=== PATIENT | female | born 1965 | race Caucasian/White ===

== ENCOUNTER 2020-02-08 18:08 | Emergency (ER) | payer OTHER ==
[2020-02-08 18:33] VITALS: O2SAT 98
--- NOTE | 2020-02-08 18:33 | ERPHSYRPT ---
- History of Present Illness Time Seen by Provider: 02/08/20 18:25 Source: patient Physician History: Patient is a 54-year-old female presents to our ED with back pain. Patient states she was in her pool when she missed a step and stumbled. She did not fall. No trauma. However patient felt that she pulled a muscle in her low back. Pain described as an ache that is well localized. No radiation. Pain worse with movement and palpation. Pain improved with rest. No fever. No recent back procedures. No saddle anesthesia. No change in bowel bladder function. Symptoms are mild to moderate in intensity. Patient is otherwise healthy. She voices no other complaints at this time. Timing/Duration: today Method of Injury: lost balance Quality: aching Back Pain Location: lumbar spine Severity of Pain-Max: moderate Severity of Pain-Current: mild Modifying Factors: Improves With: movement Associated Symptoms: denies symptoms, No fever, No chills, No sweating, No urinary incontinence, No loss of bowel control, No constipation, No nausea, No vomiting, No problems urinating, No light-headedness, No dizziness, No numbness in legs/feet, No weakness, No sensory/motor loss, No tingling in legs/feet, No lower back pain Previous symptoms: no prior history Allergies/Adverse Reactions: No Known Drug Allergies Allergy (Unverified 02/08/20 18:33) Home Medications: No Reportable Medications [No Reported Medications] 02/08/20 [History] - Review of Systems Constitutional: No Symptoms, No Fever, No Chills Eyes: No Symptoms Ears, Nose, & Throat: No Symptoms Respiratory: No Symptoms, No Cough, No Dyspnea Cardiac: No Symptoms, No Chest Pain, No Edema, No Syncope Abdominal/Gastrointestinal: No Symptoms, No Abdominal Pain, No Nausea, No Vomiting, No Diarrhea Genitourinary Symptoms: No Symptoms, No Dysuria Musculoskeletal: No Symptoms, No Back Pain, No Neck Pain Skin: No Symptoms, No Rash Neurological: No Symptoms, No Dizziness, No Focal Weakness, No Sensory Changes Psychological: No Symptoms Endocrine: No Symptoms Hematologic/Lymphatic: No Symptoms Immunological/Allergic: No Symptoms All Other Systems: Reviewed and Negative - Nursing Vital Signs Nursing Vital Signs: Initial Vital Signs Temperature 98.9 F 02/08/20 18:21 Pulse Rate 96 H 02/08/20 18:21 Respiratory Rate 20 02/08/20 18:21 Blood Pressure 147/83 02/08/20 18:21 O2 Sat by Pulse Oximetry 98 02/08/20 18:21 Pain Scale Pain Intensity [Lower Back] 8 Pain Intensity 9 - Physical Exam General Appearance: no apparent distress, alert Eye Exam: PERRL/EOMI, eyes nml inspection Neck Exam: normal inspection, non-tender, supple, full range of motion, No meningismus, No midline tenderness Respiratory Exam: normal breath sounds, lungs clear, No respiratory distress Cardiovascular Exam: regular rate/rhythm, normal heart sounds Gastrointestinal Exam: soft, No tenderness, No mass Pelvic Exam: not done Rectal Exam: deferred Extremity Exam: normal inspection, normal range of motion, No calf tenderness, No pedal edema Neurologic Exam: alert, oriented x 3, cooperative, project/production manager imaging II-XII nml as tested, normal mood/affect, nml station & gait, sensation nml, No motor deficits Skin Exam: normal color, warm, dry, No rash SpO2 Interpretation: normal SpO2: 98 O2 Delivery: Room Air - Radiology Exams L-Spine X-ray Interpretation: Teleradiologist Report (No fractures or dislocations.) Ordered Tests: Active Orders 24 hr Category Date Time Status LUMBAR LIMITED (2 OR 3 VIEWS) Stat Exams 02/08/20 18:32 Ordered UA W/RFX UR CULTURE Stat Lab 02/08/20 18:38 Completed Medication Summary Discontinued Medications Generic Name Dose Route Start Last Admin Trade Name Ferq PRN Reason Stop Dose Admin Ketorolac Tromethamine 30 mg 02/08/20 18:35 02/08/20 18:40 Toradol 30 Mg Injection IM 02/08/20 18:36 30 mg STAT ONE Administration Ketorolac Tromethamine Confirm 02/08/20 18:38 Toradol 30 Mg Injection Administered 02/08/20 18:39 Dose 30 mg .ROUTE .STK-MED ONE Lab/Rad Data: Laboratory Results 02/08/20 Range/Units 18:38 Urine Color YELLOW (YELLOW) Urine Appearance SLIGHTLY CLOUDY (CLEAR) Urine pH 5.0 (5-6) Ur Specific [place] 1.032 (1.005-1.025) Urine Protein NEGATIVE (Negative) Urine Ketones NEGATIVE (NEGATIVE) Urine Blood NEGATIVE (0-5) Byron/ul Urine Nitrite NEGATIVE (NEGATIVE) Urine Bilirubin NEGATIVE (NEGATIVE) Urine Urobilinogen NEGATIVE (0-1) mg/dL Ur Leukocyte Esterase NEGATIVE (NEGATIVE) Urine WBC (Auto) 0-2 (0-5) /HPF Urine RBC (Auto) NONE (0-2) /HPF U Epithel Cells (Auto) MODERATE (FEW) /HPF Urine Bacteria (Auto) MODERATE (NEGATIVE) /HPF Urine Mucus (Auto) SLIGHT (NEGATIVE) /HPF Urine Culture Reflexed NO (NO) Urine Glucose NEGATIVE (NEGATIVE) mg/dL - Progress Progress: improved Progress Note: 02/08/20 19:10 Patient reassessed. Pain improved. UA negative for UTI. X-ray lumbosacral spine is negative for acute pathology. No fracture or dislocation. Patient voices no other complaints or concerns at this time. Will discharge patient home. She agrees to follow-up with her primary care doctor within 48 hours for reevaluation. Counseled pt/family regarding: diagnosis, need for follow-up, rad results - Departure Departure Disposition: Home Clinical Impression: Lumbosacral strain Condition: Stable Critical Care Time: No Referrals: PEE CORBETT [Primary Care Provider] - Additional Instructions: Discharge/Care Plan MAGEN MEDRANO was seen on 02/08/20 in the Emergency Room. The patient was counseled regarding Diagnosis,Lab results, Imaging studies, need for follow up and when to return to the Emergency Room. Prescriptions given: Discharge Note I have spoken with the patient and/or caregivers. I have explained the patient's condition, diagnosis and treatment plan based on the information available to me at this time. I have answered the patient's and/or caregiver's questions and addressed any concerns. The patient and/or caregivers have as good understanding of the patient's diagnosis, condition and treatment plan as can be expected at this point. The vital signs have been stable. The patient's condition is stable and appropriate for discharge from the emergency department. The patient will pursue further outpatient evaluation with the primary care physician or other designated or consulting physician as outlined in the discharge instructions. The patient and/or caregivers are agreeable to this plan of care and follow-up instructions have been explained in detail. The patient and/or caregivers have received these instruction. The patient/and or caregivers are aware that any significant change in condition or worsening of symptoms should prompt an immediate return to this or the closest emergency department or call 911.
[2020-02-08] MEDS ORDERED: TORAdol 30 mg Injection IM ONE (18:35)
[2020-02-08] MEDS ORDERED: TORAdol 30 mg Injection ONE (18:38)
[2020-02-08 18:54] LABS: Appearance SLIGHTLY CLOUDY (CLEAR); Bacteria MODERATE /HPF (NEGATIVE); Bilirubin NEGATIVE (NEGATIVE); Blood NEGATIVE Ery/ul (0-5); Epithelial Cells MODERATE /HPF (FEW); Glucose NEGATIVE (NEGATIVE); Ketones NEGATIVE (NEGATIVE); Leukocyte Esterase NEGATIVE (NEGATIVE); Mucus SLIGHT /HPF (NEGATIVE); Nitrite NEGATIVE (NEGATIVE); Protein,Urine Dip NEGATIVE (Negative); Specific Gravity 1.032 (1.005-1.025); Urobilinogen NEGATIVE mg/dL (0-1); WBC 0-2 /HPF (0-5)
[2020-02-08 19:29] VITALS: BP 134/82; PULSE 82
--- NOTE | 2020-02-09 08:39 | XRAY ---
Indication: Pain following fall. Comparison: None 3 view lumbar spine demonstrates 4 lumbar segments with partial sacralized L5 in normal alignment with minimal L3-S1 disc space narrowing and mild bilateral L4-S1 degenerative facet hypertrophy. No other bony, articular, or soft tissue abnormalities.
== END 2020-02-08 19:27 | disposition home or self-care (01) ==
LOC: ED 18:08
DX: S39.012A Strain of muscle, fascia and tendon of lower back, initial encounter (principal); W18.43XA Slipping, tripping and stumbling without falling due to stepping from one level to another, initial encounter; Y93.11 Activity, swimming
CPT/HCPCS: 72100; 81001; 96372; 99284; J1885

== ENCOUNTER 2020-04-25 05:51 | Day surgery (SDC) | payer OTHER ==
[~2020-04-25 05:51] MED LIST: DIPRIVAN 200 MG/20 ML IV ONE; Ketamine HCl 50 MG/ML ONE
[2020-04-25] MEDS ORDERED: Lactated Ringers 1,000 ML IV ONE (06:12)
[2020-04-25] MEDS ORDERED: Lactated Ringers 1,000 ML IV SCH (06:30)
[2020-04-25 09:16] VITALS: BP 155/93; PULSE 69; O2SAT 98
--- NOTE | 2020-04-25 11:30 | OP ---
SURGERY DATE/TIME: 04/25/2020 0805 PREOPERATIVE DIAGNOSES: 1) Rectal bleeding. 2) Positive Cologuard. POSTOPERATIVE DIAGNOSIS: Diverticulosis mild to moderate throughout the colon otherwise normal colon. PROCEDURE: Colonoscopy. SURGEON: Dr. Navarrete. ANESTHESIA: MAC. Medications given by anesthesia department. HISTORY: The patient is a 55 year old white female who reports she has been having problems with rectal bleeding over the past several weeks. She also had a positive Cologuard back in July. The patient now presents for first colonoscopy. She was appraised of the risks of the procedure including the risk of perforation, phlebitis, untoward reaction to medication, bleeding and missed lesions. The patient verbalized her understanding and desired to have the procedure performed. DESCRIPTION OF PROCEDURE: The patient was given the medications by the anesthesia department. She had continuous pulse oximetry, ECG monitoring, intermittent blood pressure monitoring and tidal CO2 monitoring during the examination. She was placed in the left lateral decubitus position. A digital rectal examination was performed and revealed normal anal sphincter tone and no masses. No significant hemorrhoids. The flexible Olympus pediatric colonoscope was used to intubate the rectum. A view of the colon was developed sequentially to the cecum including approximately 20 cm into the terminal ileum. Upon insertion and withdrawal, including a retroflex view in the rectum was noted mild to moderate diverticulosis scattered throughout the colon. There were no other mucosal lesions were encountered. The scope was removed from the patient who tolerated the procedure well and was sent back to OP recovery in good condition. The prep was noted to be good.
== END 2020-04-25 09:20 | disposition home or self-care (01) ==
LOC: SDC 05:51
PROVIDERS: ATTEND Family Medicine
DX: K57.30 Diverticulosis of large intestine without perforation or abscess without bleeding (principal); R19.5 Other fecal abnormalities; K62.5 Hemorrhage of anus and rectum; Z79.899 Other long term (current) drug therapy
CPT/HCPCS: J2704

== ENCOUNTER 2020-11-09 14:46 | Day surgery (SDC) | payer OTHER ==
[2020-11-09] MEDS ORDERED: Depo-Medrol 40 MG/ML IM ONE (14:47)
[2020-11-09] MEDS ORDERED: LIDOCAINE HCL 2% 100 MG/5 ML IJ ONE (14:47)
[2020-11-09] MEDS ORDERED: Lactated Ringers 1,000 ML IV ONE (16:14)
[2020-11-09] MEDS ORDERED: DIPRIVAN 200 MG/20 ML IV ONE (16:15)
--- NOTE | 2020-11-09 16:55 | XRAY ---
Indication: Bilateral L4-S1 MBB. Intraoperative fluoroscopy provided for 10 seconds. Single digital spot image submitted for interpretation demonstrates posterior needle tips projecting over the expected left and right L4-S1 nerve roots. Correlate with intraoperative findings/report.
--- NOTE | 2020-11-09 17:17 | XRAY ---
10 seconds fluoroscopy time in surgery for bilateral L4-S1 MBB.
== END 2020-11-09 16:41 | disposition home or self-care (01) ==
LOC: SDC-PAIN 14:46
PROVIDERS: ATTEND Psychiatry & Neurology Pain Medicine
DX: M47.816 Spondylosis without myelopathy or radiculopathy, lumbar region (principal); I10 Essential (primary) hypertension; F32.9 Major depressive disorder, single episode, unspecified; Z79.899 Other long term (current) drug therapy
CPT/HCPCS: 64493; 64494; 72100; 77002; J1030; J2704

== ENCOUNTER 2021-02-22 14:51 | Day surgery (SDC) | payer OTHER ==
[2021-02-22] MEDS ORDERED: Depo-Medrol 40 MG/ML IM ONE (14:52)
[2021-02-22] MEDS ORDERED: BUPIVACAINE 0.5% VIAL IJ ONE (14:52)
[2021-02-22] MEDS ORDERED: DIPRIVAN 200 MG/20 ML IV ONE (16:46)
--- NOTE | 2021-02-22 17:29 | XRAY ---
8 seconds fluoroscopy time in surgery for injection of the right SI joint.
--- NOTE | 2021-02-22 17:39 | XRAY ---
Indication: Right SI joint injection. Intraoperative fluoroscopy provided for 8 seconds. Single lateral digital spot image submitted for interpretation demonstrates posterior needle tip projecting mid sacrum. Correlate with intraoperative findings/report.
[2021-02-22] MEDS ORDERED: Lactated Ringers 1,000 ML IV ONE (18:50)
== END 2021-02-22 17:13 | disposition home or self-care (01) ==
LOC: SDC-PAIN 14:51
PROVIDERS: ATTEND Psychiatry & Neurology Pain Medicine
DX: M46.1 Sacroiliitis, not elsewhere classified (principal); Z79.899 Other long term (current) drug therapy
CPT/HCPCS: 27096; 72020; 77002; G0260; J1030; J2704

== ENCOUNTER 2021-11-06 05:55 | Day surgery (SDC) | payer OTHER ==
[2021-11-06] MEDS ORDERED: Lactated Ringers 1,000 ML IV SCH (07:00)
[2021-11-06] MEDS ORDERED: Lactated Ringers 1,000 ML IV ONE (07:21)
[2021-11-06] MEDS ORDERED: DIPRIVAN 200 MG/20 ML IV ONE (07:48)
[2021-11-06] MEDS ORDERED: Xylocaine-Mpf 2% 5 Ml Vial ONE (07:48)
[2021-11-06] MEDS ORDERED: Versed 2 MG/2 ML Injection ONE (07:48)
[2021-11-06 08:51] VITALS: O2SAT 97
[2021-11-06 09:15] VITALS: BP 138/72; PULSE 78
--- NOTE | 2021-11-06 09:46 | OP ---
SURGERY DATE/TIME: 11/06/2021 0750 PREOPERATIVE DIAGNOSIS: Epigastric pain. POSTOPERATIVE DIAGNOSIS: NSAID-type gastritis and hiatal hernia. PROCEDURE: Esophagogastroduodenoscopy with cold forceps biopsy. SURGEON: Dr. Navarrete. ANESTHESIA: Medications were given by the anesthesia department. BRIEF HISTORY: The patient is a 56-year-old white female who is having problems with epigastric pain and diarrhea. The patient previously had colonoscopy and showed diverticulosis otherwise was normal. The patient was felt to need to have endoscopic evaluation. She was appraised of the risks of the procedure including the risk of perforation, phlebitis, untoward reaction to medication, bleeding and missed lesions. The patient verbalized her understanding and desired to have the procedure performed. DESCRIPTION OF PROCEDURE: The patient was given the medications by the anesthesia department. She had continuous pulse oximetry, ECG monitoring, intermittent blood pressure monitoring during the examination. She was placed in the left lateral decubitus position. A bite block was placed and the flexible Olympus gastroscope was used to intubate the oropharynx. A view of the larynx was normal. The scope was easily introduced in the esophagus which appeared to be normal to the gastroesophageal junction where there appeared to be a small hiatal hernia. The scope was passed in the stomach was entered where normal gastric rugal folds were seen and these distended nicely with insufflation of air. The scope was passed along the greater curvature of the stomach to the antrum. The pylorus was encountered and intubated. Duodenum inspected and found to be normal. The scope is withdrawn towards the stomach again. A retroflex view was obtained of the lesser curvature, fundus and cardia regions of the stomach and again we noted the hiatal hernia. The scope was then redirected towards the gastric antrum where two biopsies were obtained with cold biopsy forceps to rule out the underlying possibility of Helicobacter pylori-type gastritis and to confirm the clinical healing of NSAID gastritis. The scope was then removed from the patient who tolerated the procedure well and was sent back to outpatient recovery in good condition.
== END 2021-11-06 09:16 | disposition home or self-care (01) ==
LOC: SDC 05:55
PROVIDERS: ATTEND Family Medicine
DX: K29.70 Gastritis, unspecified, without bleeding (principal); K44.9 Diaphragmatic hernia without obstruction or gangrene; T39.395A Adverse effect of other nonsteroidal anti-inflammatory drugs [NSAID], initial encounter; R19.7 Diarrhea, unspecified
CPT/HCPCS: J2250; J2704